=== PATIENT | male | born 1950 | race Caucasian/White ===

== ENCOUNTER → 2017-04-03 | Outpatient (CLI) | payer MEDICARE ==
[~2017-04-03] MED LIST: ALDACTONE25 MG PO; ATIVAN 0.5MG0.5 MG PO; DELTASONE5 MG PO; FLUOXETINE HCL60 MG PO; GUAIFEN-CODEIN473 ML PO; HALLS5.8 MG PO; K-TAB ER20 MEQ PO; KEFLEX500 MG PO; LASIX80 MG PO; LOPRESSOR25 MG PO; MAALOX LIQ UNIT30 ML PO; MIRALAX17 GM PO; MOTRIN600 MG PO; PEPCID20 MG PO; WELLBUTRIN XL300 M2 PO; ZAROXOLYN2.5 MG PO
[2017-04-03 15:21] LABS: BASOPHIL # 0.1 K/uL (0.0-0.2); BASOPHIL % 0.8 %; EOSINOPHIL # 0.1 K/uL (0.0-0.5); EOSINOPHIL % 0.6 %; HEMATOCRIT 38.5 % (37.0-53.0); HEMOGLOBIN 12.4 g/dL (11.0-16.0); IMMATURE GRANULOCYTE # 0.1 K/uL (0.0-0.3); IMMATURE GRANULOCYTE % 0.7 %; LYMPHOCYTE # 1.5 K/uL (0.8-4.0); LYMPHOCYTE % 14.6 %; MCH 29.7 pg (27.0-34.0); MCHC 32.2 gm/dL (32.0-36.5); MONOCYTE # 1.2 K/uL (0.0-1.0); MONOCYTE % 11.5 %; MPV 9.2 fl (9.4-12.4); NEUTROPHIL # (ANC) 7.3 K/uL (1.4-9.0); NEUTROPHIL % 71.8 %; NRBC % 0 /100WBC (0-0.00); RBC 4.18 M/uL (3.50-5.50); RDW-CV 15.3 % (11.9-14.6); WBC 10.2 K/uL (4.0-11.0)
[2017-04-03 15:23] LABS: MCV 92.1 fl (83.0-98.0); PLATELET COUNT 575 K/uL (150-450)
[2017-04-03 15:32] LABS: CALCIUM 8.7 mg/dL (8.5-10.5); CREATININE 1.1 mg/dL (0.6-1.3)
== END ==
LOC: LGSRV 15:15
PROVIDERS: Family Medicine
DX: M25.531 Pain in right wrist (principal); M65.9 Synovitis and tenosynovitis, unspecified